=== PATIENT | female | born 1955 | race Caucasian/White ===

== ENCOUNTER 2017-10-10 10:49 | Outpatient (CLI) | payer BC | END 2017-10-10 10:50 | disposition home or self-care (01) | LOC: BICMAMMO 10:49 | PROVIDERS: ATTEND Obstetrics & Gynecology | DX: Z12.31 Encounter for screening mammogram for malignant neoplasm of breast (principal) | CPT/HCPCS: G0279 ==

== ENCOUNTER 2018-11-12 10:00 | Outpatient (CLI) | payer BC | END 2018-11-12 10:01 | disposition home or self-care (01) | LOC: BICMAMMO 10:00 | PROVIDERS: ATTEND Obstetrics & Gynecology | DX: Z12.31 Encounter for screening mammogram for malignant neoplasm of breast (principal) | CPT/HCPCS: 77063; 77067 ==

== ENCOUNTER 2020-02-08 08:42 | Outpatient (CLI) | payer BC ==
--- NOTE | 2020-02-08 09:33 | MMO ---
Bilateral MAMMO Bilat Diag [facility]. CLINICAL HISTORY: Patient is 65 years old and is seen for diagnostic exam and lump or thickening in the left breast. The patient has the following family history of breast cancer: maternal grandmother, malignant (generic). The patient has no personal history of cancer. The patient has a history of left Stereotatic Biopsy in March, - benign. VIEWS: The views performed were: bilateral craniocaudal with tomosynthesis; bilateral mediolateral oblique with tomosynthesis; and bilateral mediolateral with tomosynthesis. FILMS COMPARED: The present examination has been compared to prior imaging studies performed at [facility] on 10/10/2017, 11/12/2018 and 02/08/2020, and at [facility] on 03/27/2017. This study has been interpreted with the assistance of computer-aided detection. MAMMOGRAM FINDINGS: The breasts are heterogeneously dense, which could obscure a lesion on mammography. There is a new oval mass with circumscribed margins seen in the upper-outer region of the left breast. The mass has mixed solid and cystic components with ultrasound. In the right breast, there are no suspicious masses, calcifications or areas of architectural distortion. IMPRESSION: NEW MASS IN THE LEFT BREAST IS SUSPICIOUS. AN ULTRASOUND-GUIDED BREAST BIOPSY IS RECOMMENDED. THE RESULTS OF THIS EXAM WERE SENT TO THE PATIENT. ACR BI-RADS Category 4 - Suspicious abnormality - biopsy should be considered MAMMOGRAPHY NOTE: 1. A negative mammogram report should not delay a biopsy if a dominant of clinically suspicious mass is present. 2. Approximately 10% to 15% of breast cancers are not detected by mammography. 3. Adenosis and dense breasts may obscure an underlying neoplasm. Reported by: LUIS A HILL MD Electonically Signed: [id number]
--- NOTE | 2020-02-08 11:10 | ULT ---
RIGHT BREAST ULTRASOUND: COMPARISON: 03/27/2017 and mammogram 02/08/2020, 11/12/2018. HISTORY: Palpable area of fullness in the upper aspect of the left breast. TECHNIQUE: Multiplanar, noriega scale, and color Doppler images were obtained in a left breast ultrasound. FINDINGS: There is a well-circumscribed hypoechoic mass with both solid and cystic features at the area of palp able abnormality in the left breast at the 2 o'clock position approximately 3 cm from the nipple. Th is measures approximately 2.4 cm in greatest dimension. There is a questionable immediately adjacent satellite lesion measuring approximately 5 mm in size. Targeted ultrasound of the axilla shows a normal-appearing left axillary lymph node without enlarged left axillary lymph nodes. IMPRESSION: BIRADS category 4 - suspicious abnormality. An ultrasound-guided biopsy of the left breast mass is r ecommended.
== END 2020-02-08 08:43 | disposition home or self-care (01) ==
LOC: BICMAMMO 08:42
PROVIDERS: ATTEND Obstetrics & Gynecology
DX: N63.20 Unspecified lump in the left breast, unspecified quadrant (principal)
CPT/HCPCS: 77066; G0279

== ENCOUNTER 2020-12-08 13:39 | Outpatient (CLI) | payer BC | END 2020-12-08 13:40 | disposition home or self-care (01) | LOC: SCSMRI 13:39 | PROVIDERS: ATTEND Anesthesiology Pain Medicine | DX: M47.26 Other spondylosis with radiculopathy, lumbar region (principal); M87.052 Idiopathic aseptic necrosis of left femur; M16.12 Unilateral primary osteoarthritis, left hip; M65.852 Other synovitis and tenosynovitis, left thigh | CPT/HCPCS: 72148 ==

== ENCOUNTER 2023-04-09 14:43 | Outpatient (CLI) | payer MEDICARE, BC | END 2023-04-09 14:44 | disposition home or self-care (01) | LOC: RAD 14:43 | PROVIDERS: ATTEND Internal Medicine Gastroenterology | DX: R05.9 Cough, unspecified (principal); K21.9 Gastro-esophageal reflux disease without esophagitis | CPT/HCPCS: 71046 ==

== ENCOUNTER 2023-10-02 12:59 | Outpatient (CLI) | payer MEDICARE, BC | END 2023-10-02 13:00 | disposition home or self-care (01) | LOC: RAD 12:59 | PROVIDERS: ATTEND Internal Medicine Critical Care Medicine | DX: R06.00 Dyspnea, unspecified (principal) | CPT/HCPCS: 71046 ==